=== PATIENT | male | born 1985 ===

== ENCOUNTER 2024-05-23 23:52 | Emergency (ER) | payer MEDICAID ==
[2024-05-23] MEDS ORDERED: traMADol 50 MG Tab ONE (23:55)
[2024-05-24] MEDS ORDERED: Ketorolac 30 MG/ML SDV ONE (01:01)
[2024-05-24] MEDS: Ketorolac 30 MG/ML SDV IM ONE (01:05)
== END 2024-05-24 01:45 | disposition home or self-care (01) ==
LOC: LB.ED 23:52
DX: S42.292A Other displaced fracture of upper end of left humerus, initial encounter for closed fracture (principal); W01.0XXA Fall on same level from slipping, tripping and stumbling without subsequent striking against object, initial encounter
CPT/HCPCS: 73000; 73030; 96372; 99283; A9270; J1885